=== PATIENT | male | born 1950 | race Caucasian/White ===

== ENCOUNTER 2017-01-16 13:10 | Emergency (ER) | payer MEDICARE, BC ==
[2017-01-16 13:15] VITALS: BP 126/82
[2017-01-17 12:08] LABS: Syphilis Index < 0.1 Index
--- NOTE | 2017-01-17 18:36 | UC ---
Progress - Progress Note Progress Note: PLS CALL PT. SYPHILIS, HEP B, HEP C AND HIV TESTING ALL NEGATIVE. RECOMMEND REPEAT TESTING IN 6 MONTHS TO ENSURE NO SEROCONVERSION. NO HBSAB - PT NOT IMMUNE TO HEP B. PLEASE CALL AND ADVISE PT TO F/U WITH PCP AND RECEIVE VACCINATION SERIES.
--- NOTE | 2017-01-17 18:40 | UC ---
Complaint Male HPI - HPI Summary HPI Summary: had unprotected sexual relationship with a man 6 weeks ago--is seeking std testing today, patient has no symptoms - History of Current Complaint Chief Complaint: UCBodyFluidExposure Stated Complaint: STD TESTING Time Seen by Provider: 01/16/17 13:40 Hx Obtained From: Patient Onset/Duration: Sudden Onset Severity Currently: None Pain Intensity: 0 Pain Scale Used: Adult Non Verbal Location: None Associated Signs And Symptoms: Positive: Negative - Allergies/Home Medications Allergies/Adverse Reactions: Allergies Allergy/AdvReac Type Severity Reaction Status Date / Time No Known Allergies Allergy Verified 01/16/17 13:15 Home Medications: Home Medications Atorvastatin* [Lipitor 10 MG*] 10 mg PO DAILY 01/16/17 [History Confirmed ] Rabeprazole (NF) [Aciphex (NF)] 20 mg PO DAILY 01/16/17 [History Confirmed 01/16] PMH/Surg Hx/FS Hx/Imm Hx Endocrine History: Dyslipidemia GI/ History: Gastroesophageal Reflux Psychological History: Depression - Surgical History Surgical History: Yes Surgery Procedure, Year, and Place: LEFT SHOULDER REPLACEMENT - Family History Known Family History: Positive: Cardiac Disease - Social History Occupation: Employed Full-time Lives: With Family Alcohol Use: Weekly Substance Use Type: None Smoking Status (MU): Former Smoker - Immunization History Most Recent Influenza Vaccination: 2013 Most Recent Tetanus Shot: not sure Most Recent Pneumonia Vaccination: not sure Review of Systems Constitutional: Negative Skin: Negative Eyes: Negative ENT: Negative Respiratory: Negative Cardiovascular: Negative Gastrointestinal: Negative Genitourinary: Negative Motor: Negative Neurovascular: Negative Musculoskeletal: Negative Neurological: Negative Psychological: Negative All Other Systems Reviewed And Are Negative: Yes Physical Exam Triage Information Reviewed: Yes Appearance: Well-Appearing, No Pain Distress, Well-Nourished Vital Signs: Initial Vital Signs Temp 98.2 F 01/16/17 13:13 Pulse 65 01/16/17 13:13 Resp 16 01/16/17 13:13 BP 126/82 01/16/17 13:13 Pulse Ox 96 01/16/17 13:13 Vital Signs Reviewed: Yes Eye Exam: Normal Eyes: Positive: Conjunctiva Clear ENT Exam: Normal ENT: Positive: Normal ENT inspection, Hearing grossly normal. Negative: Nasal congestion, Nasal drainage, Trismus, Muffled/hoarse voice Dental Exam: Normal Neck exam: Normal Neck: Positive: Supple Respiratory Exam: Normal Respiratory: Positive: No respiratory distress, No accessory muscle use Cardiovascular Exam: Normal Cardiovascular: Positive: RRR, Brisk Capillary Refill Musculoskeletal Exam: Normal Musculoskeletal: Positive: Strength Intact, ROM Intact, No Edema Neurological Exam: Normal Neurological: Positive: Alert, Muscle Tone Normal Psychological Exam: Normal Skin Exam: Normal Complaint Male Course/Dx - Course Course Of Treatment: Lab studies for STD screening, follow with PCP - Differential Dx/Diagnosis Differential Diagnosis/HQI/PQRI: Urinary Tract Infection, Other - STD Provider Diagnoses: STD Screening Discharge - Discharge Plan Condition: Stable Disposition: HOME Patient Education Materials: Safe Sex (ED) Referrals: Phi Manuel MD [Primary Care Provider] - 2 Weeks Additional Instructions: [facility] help for [facility]
== END 2017-01-16 14:15 | disposition home or self-care (01) ==
LOC: UCEAST 13:10
DX: Z11.3 Encounter for screening for infections with a predominantly sexual mode of transmission (principal); Z11.4 Encounter for screening for human immunodeficiency virus [HIV]; E78.5 Hyperlipidemia, unspecified; K21.9 Gastro-esophageal reflux disease without esophagitis; Z87.891 Personal history of nicotine dependence
CPT/HCPCS: 36415; 81003; 86592; 86703; 86706; 86803; 87340; 87491; 87591; 99211; G0463

== ENCOUNTER 2017-06-10 18:53 | Emergency (ER) | payer MEDICARE, BC ==
[2017-06-10] MEDS ORDERED: Mupirocin 2% OINT* TUBE TOPICAL ONE (20:45)
[2017-06-10] MEDS ORDERED: Cephalexin CAP* 500 MG PO ONE ×2 (20:46→21:02)
--- NOTE | 2017-06-10 20:49 | UC ---
Skin Complaint HPI - HPI Summary HPI Summary: 1 week ago got laceration on front of right lower leg----was healing well until yesterday then develop-ed erythema and some purulent drainage - History of Current Complaint Chief Complaint: UCLowerExtremity Time Seen by Provider: 06/10/17 20:38 Stated Complaint: SORE ON LEG Hx Obtained From: Patient Onset/Duration: Gradual Onset, Lasting Days, Worse Since - yesterday Timing: Constant Onset Severity: Mild Current Severity: Mild Location: Discrete - parsons on right leg Character: Redness Aggravating Factor(s): Nothing Alleviating Factor(s): Nothing Associated Signs & Symptoms: Positive: Tenderness - Allergy/Home Medications Allergies/Adverse Reactions: Allergies Allergy/AdvReac Type Severity Reaction Status Date / Time No Known Allergies Allergy Verified 06/10/17 19:50 Home Medications: Home Medications Omeprazole CAP* [Prilosec CAP* 20 MG] 1 tab PO DAILY 06/10/17 [History Confirmed 06/10/17] Review of Systems Constitutional: Negative Skin: Negative - around wound on anterior right parsons some purulent drainage, Other Eyes: Negative ENT: Negative Respiratory: Negative Cardiovascular: Negative Gastrointestinal: Negative Genitourinary: Negative Motor: Negative Neurovascular: Negative Musculoskeletal: Negative Neurological: Negative Psychological: Negative Is Patient Immunocompromised?: No All Other Systems Reviewed And Are Negative: Yes PMH/Surg Hx/FS Hx/Imm Hx Previously Healthy: No Endocrine History: Dyslipidemia GI/ History: Gastroesophageal Reflux Psychological History: Depression - Surgical History Surgical History: Yes Surgery Procedure, Year, and Place: LEFT SHOULDER REPLACEMENT - Family History Known Family History: Positive: Cardiac Disease - Social History Occupation: Employed Full-time Lives: With Family Alcohol Use: Occasionally Substance Use Type: Prescribed Smoking Status (MU): Former Smoker - Immunization History Most Recent Influenza Vaccination: 2013 Most Recent Tetanus Shot: less 5 yrs Most Recent Pneumonia Vaccination: not sure Physical Exam Triage Information Reviewed: Yes Appearance: Well-Appearing, No Pain Distress, Well-Nourished Vital Signs: Initial Vital Signs Temp 97.8 F 06/10/17 19:46 Pulse 70 06/10/17 19:46 Resp 12 06/10/17 19:46 BP 137/71 06/10/17 19:46 Pulse Ox 99 06/10/17 19:46 Vital Signs Reviewed: Yes Eye Exam: Normal Eyes: Positive: Conjunctiva Clear ENT Exam: Normal ENT: Positive: Normal ENT inspection, Hearing grossly normal. Negative: Nasal congestion, Nasal drainage, Trismus, Hoarse voice, Sinus tenderness Dental Exam: Normal Neck exam: Normal Neck: Positive: Supple, Nontender Respiratory Exam: Normal Respiratory: Positive: Chest non-tender, No respiratory distress, No accessory muscle use Cardiovascular Exam: Normal Cardiovascular: Positive: RRR, Pulses Normal, Brisk Capillary Refill Musculoskeletal Exam: Normal Musculoskeletal: Positive: Strength Intact, ROM Intact, No Edema Neurological Exam: Normal Neurological: Positive: Alert, Muscle Tone Normal Psychological Exam: Normal Skin Exam: Other Skin: Positive: Other - 10 cm skin abrasion than per patient has today began with erythema around wound and has some purulence in the proximal portion of wound Course/Dx - Course Course Of Treatment: bid mils soap and water wash bactroban, keflex follow with pcp should wound worsen in any way stop LIZZY - Diagnoses Provider Diagnoses: Cellulitis right parsons seconday to abrasion Discharge - Discharge Plan Condition: Stable Disposition: HOME Prescriptions: Cephalexin CAP* [Keflex CAP*] 500 mg PO QID #19 cap Patient Education Materials: Wound Infection (ED) Referrals: Phi Manuel MD [Primary Care Provider] - If Needed
[2017-06-10 21:14] VITALS: BP 119/80
== END 2017-06-10 21:14 | disposition home or self-care (01) ==
LOC: UCEAST 18:53
DX: L03.115 Cellulitis of right lower limb (principal); S80.811A Abrasion, right lower leg, initial encounter; X58.XXXA Exposure to other specified factors, initial encounter; Y93.9 Activity, unspecified; Y92.9 Unspecified place or not applicable; Y99.9 Unspecified external cause status; Z87.891 Personal history of nicotine dependence
CPT/HCPCS: 99213; A9270-GY; G0463

== ENCOUNTER 2017-09-16 14:33 | Observation (INO) | payer BC, MEDICARE ==
[2017-09-16 15:46] LABS: ABS Basophils 0.1 10^3/ul (0-0.2); ABS Eosinophils 0.2 10^3/ul (0-0.6); ABS Lymphocytes 1.9 10^3/ul (1.0-4.8); ABS Monocytes 0.4 10^3/ul (0-0.8); ABS Neutrophils 4.3 10^3/ul (1.5-7.7); ABS Nucleated RBC 0 10^3/ul; Eosinophil % 3.4 % (0-6); Hematocrit 40 % (42-52); Hemoglobin 13.9 g/dl (14.0-18.0); Lymphocyte % 27.2 % (25-47); Mean Corpuscular HGB Conc 34 g/dl (31-36); Mean Corpuscular Hemoglobin 31 pg (27-31); Mean Corpuscular Volume 90 fL (80-94); Mean Platelet Volume 7 um3 (7.4-10.4); Nucleated Red Blood Cells % 0; Platelet Count 241 10^3/ul (150-450); Red Blood Count 4.47 10^6/ul (4.0-5.4); Red Cell Distribution Width 13 % (10.5-15); White Blood Count 6.9 10^3/ul (3.5-10.8)
[2017-09-16 16:11] LABS: EGFR Non-African American 79.6 (>60)
[2017-09-16] MEDS ORDERED: Acetaminophen TAB* 325 MG PO PRN (18:48)
[2017-09-16] MEDS ORDERED: Aspirin Low Dose CHEW TAB* 81 MG PO SCH (19:00)
[2017-09-16] MEDS: Omeprazole CAP* 20 MG PO SCH (21:27)
[2017-09-16] MEDS: Heparin VIAL(*) 5000 UNITS/ML VIAL (FIVE THOUSAND) SUBCUT SCH (21:48)
[2017-09-16] MEDS ORDERED: Ibuprofen TAB* 400 MG PO PRN (22:06)
--- NOTE | 2017-09-17 02:50 | HP ---
CC: Dr. Manuel* [facility] MEDICINE HISTORY AND PHYSICAL: DATE OF ADMISSION: 09/16/17 PRIMARY CARE PHYSICIAN: Dr. Manuel. ATTENDING PHYSICIAN: Dr. Elliott Mota* (dictation provided by Kirstin Allred NP ). CHIEF COMPLAINT: Accidental overdose of Wellbutrin. HISTORY OF PRESENT ILLNESS: Mr. Rey is a 67-year-old male with a past medical history of depression, who presents to the hospital today after accidentally taking a second dose of his Wellbutrin. Mr. Rey states that he forgot to take his Wellbutrin a few weeks ago and felt quite poorly throughout the day because of that. Therefore, he has been more alert and vigilant about possibly missing a dose. This morning, he took his pills; but later in the morning, he felt a bit "odd." He thought perhaps he had only taken ibuprofen and had not taken his Wellbutrin and therefore took another dose. Shortly thereafter, he realized in fact he had taken a dose this morning and therefore had taken 2 doses of Wellbutrin XL 300 mg. He reviewed the information on the internet about bupropion overdoses and was concerned about possible seizure and therefore came to the emergency room for evaluation via ambulance. He denies any other complaints. He has had no headaches, cough, fever, chills, chest pain, shortness of breath, nausea, vomiting, diarrhea, abdominal pain. In the emergency room, Mr. Rey had labs, which showed no significant abnormalities. He had an EKG, which showed sinus rhythm and no evidence of ischemia. His case was reviewed with Poison Control and they recommended that the patient should have 24 hours of observation as his Wellbutrin intake for the day has exceeded 450 mg. PAST MEDICAL HISTORY: 1. Depression. 2. GERD. 3. Esophageal stricture. 4. Hiatal hernia. MEDICATIONS: As outpatient are: 1. Wellbutrin XL 300 mg p.o. daily. 2. Ranitidine 150 mg p.o. b.i.d. 3. Aspirin 81 mg twice weekly. 4. Atorvastatin 10 mg p.o. daily. 5. Cholecalciferol 2000 units p.o. daily. ALLERGIES: No known drug allergies. FAMILY HISTORY: The patient reports that his mother at 84 related to dementia, coronary artery disease, arthritis, and COPD. Father at 86 of CHF. He has a brother with non-Hodgkin's lymphoma, another brother with COPD. SOCIAL HISTORY: The patient is a former smoker. He quit over 35 years ago. He drinks alcohol very occasionally. There is no report of drug use. He lives with his , Cece Rey, who would be his healthcare proxy. REVIEW OF SYSTEMS: A 14-point review of systems was completed with Mr. Rey and all those not mentioned above were negative. PHYSICAL EXAMINATION GENERAL: Mr. Rey is sitting in the bed. He is in no acute distress with his at the bedside. VITAL SIGNS: Temperature 98.2, pulse rate 63, respiratory rate 18, O2 saturation 98% on room air, blood pressure 130/81. LUNGS: Clear to auscultation bilaterally. No accessory muscle use and good aeration. HEART: S1, S2. No murmur, rub, or gallop and regular. ABDOMEN: Soft, nontender with bowel sounds positive x4. EXTREMITIES: No cyanosis or edema. NEUROLOGIC: He is alert. He is oriented x3. He moves all extremities equally. There is no facial asymmetry or focal weakness. Extraocular movements are intact. SKIN: Intact. DIAGNOSTIC STUDIES/LAB DATA: Sodium 139, potassium 4.0, chloride 105, serum bicarbonate 29, BUN 10, creatinine is 0.94, glucose 100. WBC 6.9, hemoglobin 13.9, hematocrit 40, platelet count 241. ASSESSMENT: Mr. Rey is a 67-year-old male with past medical history of depression, who presents today to the hospital after accidently ingesting a second dose of his Wellbutrin XL 300 mg. Our plans are for observation in the hospital for the followin. Accidental Wellbutrin overdose: Poison Control has recommended that the patient be monitored for 24 hours due to concern for seizure risk. The patient will have seizure precautions. 2. History of gastroesophageal reflux disease and esophageal strictures with hiatal hernia. Ranitidine is not available on formulary. Therefore, we will provide omeprazole. 3. Disposition to medical floor. 4. Code status is full code. TIME SPENT: Approximately 60 minutes were spent on the admission of this patient; more than half time spent with the patient at the bedside, reviewing the events leading up to this hospitalization, performing the physical examination and reviewing my plan of care. KIRSTIN ALLRED NP [id number]/[facility] #: [id number] CHERISE
[2017-09-17] MEDS: Heparin VIAL(*) 5000 UNITS/ML VIAL (FIVE THOUSAND) SUBCUT SCH (05:26)
[2017-09-17 07:26] VITALS: BP 114/68
[2017-09-17] MEDS: Omeprazole CAP* 20 MG PO SCH (07:45)
[2017-09-17] MEDS ORDERED: Cholecalciferol TAB* 1000 UNITS PO SCH (09:00)
[2017-09-17] MEDS ORDERED: Atorvastatin* 10 MG TAB PO SCH (09:00)
--- NOTE | 2017-09-17 09:37 | PN ---
Subjective Date of Service: 09/17/17 Interval History: Awake, alert, No complaints. Denies chest pain or shortness of breath. Denies abd pain n/v/d. Family History: Unchanged from Admission Social History: Unchanged from Admission Past Medical History: Unchanged from Admission Objective Active Medications: Acetaminophen (Tylenol Tab*) 650 mg PO Q6H PRN PRN Reason: PAIN Atorvastatin Calcium (Lipitor*) 10 mg PO DAILY [facility] Last Admin: 09/17/17 07:45 Dose: 10 mg Cholecalciferol (Vitamin D Tab*) 2,000 units PO DAILY [facility] Last Admin: 09/17/17 07:45 Dose: 2,000 units Heparin Sodium (Porcine) (Heparin Vial(*)) 5,000 units SUBCUT Q8HR [facility] Last Admin: 09/17/17 05:26 Dose: Not Given Ibuprofen (Motrin Tab*) 400 mg PO Q6H PRN PRN Reason: DISCOMFORT Last Admin: 09/16/17 22:36 Dose: 400 mg Omeprazole (Prilosec Cap*) 20 mg PO BID [facility] Last Admin: 09/17/17 07:45 Dose: 20 mg Vital Signs - 8 hr 09/17/17 09/17/17 02:33 07:20 Temperature 98.3 F 98.1 F Pulse Rate 80 65 Respiratory 18 18 Rate Blood Pressure 112/62 114/68 (mmHg) O2 Sat by Pulse 96 94 Oximetry Oxygen Devices in Use Now: None Appearance: appears comfortable Eyes: No Scleral Icterus Ears/Nose/Mouth/Throat: Clear Oropharnyx, Mucous Membranes Moist Neck: NL Appearance and Movements; NL JVP, Trachea Midline Respiratory: Symmetrical Chest Expansion and Respiratory Effort, Clear to Auscultation Cardiovascular: NL Sounds; No Murmurs; No JVD, RRR, No Edema Abdominal: NL Sounds; No Tenderness; No Distention Extremities: No Edema, No Clubbing, Cyanosis Skin: No Rash or Ulcers Neurological: Alert and Oriented x 3, NL Muscle Strength and Tone Nutrition: Taking PO's Result Diagrams: 09/16/17 15:37 09/16/17 15:37 Assess/Plan/Problems-Billing Assessment: Mr. Rey is a 67 y.o male with a history of depression and GERd that accidentally took an extra dose of Wellbutin xl yesterday morning at approximately 11AM. It was determined by poison control that he be monitored for 24 hours do to the increased risk of seizures. - Patient Problems (1) accidental wellbutrin overdose Current Visit: Yes Status: Acute Comment: Will hold dose for today~ may resume tomorrow. half life of XL wellbutin is 21 +/- 7 hours Will obtain EKG as per Poison control recommendations (2) Depression Current Visit: No Status: Acute Code(s): F32.9 - MAJOR DEPRESSIVE DISORDER, SINGLE EPISODE, UNSPECIFIED SNOMED Code(s): 36311380 Comment: Continue welbutrin. ~ resume tomorrow (3) GERD (gastroesophageal reflux disease) Current Visit: No Status: Chronic Code(s): K21.9 - GASTRO-ESOPHAGEAL REFLUX DISEASE WITHOUT ESOPHAGITIS SNOMED Code(s): 203818022 Comment: omeprozole ~ while inpatient Will resume zantac 150 mg BID at discharge (4) DVT prophylaxis Current Visit: Yes Status: Acute Code(s): UQZ3374 - SNOMED Code(s): 392893858 Comment: heparin SUBQ (5) Full code status Current Visit: Yes Status: Acute Code(s): Z78.9 - OTHER SPECIFIED HEALTH STATUS SNOMED Code(s): 930124831 Status and Disposition: will discharge home today.
--- NOTE | 2017-09-18 05:28 | DS ---
AMENDED REPORT NOW INCLUDES COSIGNER DESIGNATION - ESIGNED BEFORE ADJUSTMENTS CC: Dr. Manuel * DISCHARGE SUMMARY: DATE OF ADMISSION: 09/16/17 DATE OF DISCHARGE: 09/17/17 PROVIDER: Nilam Chinchilla NP ATTENDING PHYSICIAN: Dr. Elliott Mota * (dictated by Nilam Chinchilla NP). PRIMARY CARE PROVIDER: Dr. Phi Manuel. PRIMARY DIAGNOSIS: Accidental Wellbutrin overdose. SECONDARY DIAGNOSES: 1. Depression. 2. Gastroesophageal reflux disease. 3. Esophageal stricture. 4. Hiatal hernia. STUDIES COMPLETED WHILE IN THE HOSPITAL: He had an electrocardiogram on showed a normal sinus rhythm. This is unchanged from 07/14/16. Heart rate was 62, QT was 411, QTc was 419. DISCHARGE MEDICATIONS: No new medications. He will continue with: 1. Vitamin D 2000 units p.o. daily. 2. Zantac 150 mg p.o. b.i.d. 3. Wellbutrin 300 mg p.o. daily. 4. Lipitor 10 mg p.o. daily. 5. Aspirin 81 mg p.o. twice weekly. HISTORY OF PRESENT ILLNESS AND HOSPITAL COURSE: Mr. Rey is a 67-year-old male who carries a history of depression and GERD, who presented to the hospital after taking an accidental second dose of Wellbutrin. Mr. Rey states that he forgot to take his Wellbutrin few weeks ago and felt quite poorly throughout the day because of that; therefore he has been more cautious about making sure he is taking his Wellbutrin on a daily basis. He states the morning of his admission he felt kind of odd, thought perhaps he had only taken his ibuprofen and not the Wellbutrin; therefore, took another dose. Shortly after that, he realized that he had already taken his morning dose of Wellbutrin and had now taken 2 doses of Wellbutrin XR 300 mg. After reviewing information about Wellbutrin overdoses on the internet and the possibility of seizures, he came to the emergency room for evaluation via ambulance. He denied any other complaints. Denied any headache, cough, fever, or chills. No chest pain. No shortness of breath, nausea, vomiting, diarrhea, or abdominal pain. In the emergency room, Mr. Rey had labs, which showed no significant abnormalities. His EKG, which showed sinus rhythm. No evidence of ischemia. His case was reviewed with poison control and recommended that he had a 24-hour observation as his intake for the day has exceeded 450 mg. During his hospitalization, he was monitored overnight. He did not exhibit any sign of seizures. He has no complaints this morning. EKG was repeated with no changes. His QT and QTc remained within normal limits. At this time, Mr. Rey is stable for discharge home. Today vital signs are as follows: Blood pressure was 114/68, pulse was 65, respirations 18, O2 saturation was 94% on room air. DISCHARGE PLAN: Mr. Rey will be discharged back home today. Activity as tolerated. He should continue his diet as tolerated. In regards to his Wellbutrin accidental overdose, he should resume his Wellbutrin daily dosing starting tomorrow 09/18/17. The patient is aware of this recommendation. The patient should resume all of his previous medications as previous prescribed. Patient should have a follow up appointment with his primary care provider in 1 to 2 weeks. Medication safety plan was reviewed with the patient and he has a plan in place to get a weekly pill organizer, which he will place his Wellbutrin in, so that he cannot accidently take an extra dose of Wellbutrin in the future. This plan was discussed with Mr. Rey and he is in agreement with this plan. The patient was asked to return to the emergency room for any chest pain, shortness of breath, seizures or any other issues related to his medications. This is a summary of his hospitalization. For further details, please see the entire medical record. TIME SPENT: Time spent on this discharge was approximately 45 minutes, greater than half that time was spent with the patient discussing discharge plans and instructions. CONDITION ON DISCHARGE: Stable. NILAM RHETT, BRANT [id number]/[facility] #: [id number] CHERISE
== END 2017-09-17 11:30 | disposition home or self-care (01) ==
LOC: ED 14:33 → MED 18:46
PROVIDERS: ADMIT Internal Medicine; ATTEND Internal Medicine
DX: T43.291A Poisoning by other antidepressants, accidental (unintentional), initial encounter (principal); Y92.009 Unspecified place in unspecified non-institutional (private) residence as the place of occurrence of the external cause; F32.9 Major depressive disorder, single episode, unspecified; K21.9 Gastro-esophageal reflux disease without esophagitis; K22.2 Esophageal obstruction; K44.9 Diaphragmatic hernia without obstruction or gangrene; Z79.899 Other long term (current) drug therapy; R94.31 Abnormal electrocardiogram [ECG] [EKG]; I25.2 Old myocardial infarction
CPT/HCPCS: 36415; 80053; 85025; 93005; 99283; A9270-GY; G0378; J1644